=== PATIENT | male | born 1965 | race Caucasian/White ===

== ENCOUNTER 2025-03-27 21:57 | Inpatient (IN) | payer MEDICAID, OTHER ==
[~2025-03-27] VITALS: Ht 167.6 cm; Wt 101.4 kg
--- NOTE | 2025-03-27 22:23 | ED.PDOC ---
History of Present Illness HPI Comments 59 y/o obese M, with a history of hypertension and recent lower back surgery 2x weeks ago, presents with c/c of nonradiating, substernal chest pain and fever. Patient endorses on sudden, unprovoked, and atraumatic onset of symptoms, this afternoon, which has been, progressively, worsening since. No reported cardiac medical, surgical, or family history. Denial of any shortness of breath, nausea, vomiting, or further acute symptoms. Time Seen by MD: 22:15 Reviewed Notes: Nurses Notes Allergies: Coded Allergies: NO KNOWN ALLERGIES (Unverified , 03/27/25) Information Source: Patient Mode of Arrival: Ambulatory Severity: Moderate Timing: Hours Duration: Since onset Prehospital treatment: None Past Medical History PAST MEDICAL HISTORY: HTN Surgical History: Denies all surgeries Family History Family History: Unknown Social History Smoker: Non-Smoker Alcohol: Denies ETOH Use Drugs: Denies Drug Use Lives In: Home All Other Systems: Reviewed and Negative (Comprehensive systems review obtained and negative except for what is stated in the HPI.) Physical Exam General Appearance: Moderate Distress HEENT: Normal ENT Inspection, Pharynx Normal, TMs Normal Neck: Full Range of Motion, Non-Tender, Normal, Normal Inspection Respiratory: Chest Non-Tender, Lungs Clear, No Accessory Muscle Use, No Respiratory Distress, Normal Breath Sounds Cardiovascular: No Edema, No JVD, No Murmur, No Gallop, Normal Peripheral Pulses, Regular Rate/Rhythm Breast Exam: Deferred Gastrointestinal: No Organomegaly, Non Tender, No Pulsatile Mass, Normal Bowel Sounds, Soft Genitalia: Deferred Pelvic: Deferred Rectal: Deferred Extremities: No calf tenderness, Normal capillary refill, Normal inspection, Normal range of motion, Non-tender, No pedal edema Musculoskeletal : Apperance: Normal Neurologic: Alert, control systems drafting officer II-XII nml as Tested, No Motor Deficits, Normal Affect, Normal Mood, No Sensory Deficits Cerebellar Function: Normal Reflexes: Normal Skin: Dry, Normal Color, Warm Peripheral Pulses: 3+ Radial (R), 3+ Radial (L) Lymphatic: No Adenopathy Was a procedure done? Was a procedure done?: No EKG EKG : [place]: Normal Cardiac Rhythm: NSR Block: None Hypertrophy: None ST: New Differential Dx Considerations may include: [place], PE, ACS, URI, PNA, angina, anxiety, among others X-Ray, Labs, Meds, VS Vital Signs Date Time Temp Pulse Resp B/P (MAP) Pulse Ox O2 Delivery O2 Flow Rate FiO2 03/27/25 22:42 98.0 92 16 139/89 98 98.0 03/27/25 22:30 93 17 98 Nasal Cannula* 4 36 03/27/25 22:20 98.0 96 17 139/89 (106) 98 98.0 03/27/25 22:05 79 Lab Test 03/27/25 22:24 Range/Units White Blood Count 9.1 4.4-10.8 10^3/uL Red Blood Count 4.52 4.5-5.90 10^6/uL Hemoglobin 14.8 13.5-17.5 g/dL Hematocrit 42.3 41.0-53.0 % Mean Corpuscular Volume 93.6 80.0-100.0 fL Mean Corpuscular Hemoglobin 32.8 H 28.0-32.0 pg Mean Corpuscular Hemoglobin Concent 35.1 32.0-36.0 g/dL Red Cell Distribution Width 13.3 11.8-14.3 % Platelet Count 396 140-450 10^3/uL Mean Platelet Volume 7.8 6.9-10.8 fL Neutrophils (%) (Auto) 62.2 37.0-80.0 % Lymphocytes (%) (Auto) 21.3 10.0-50.0 % Monocytes (%) (Auto) 10.4 0.0-12.0 % Eosinophils (%) (Auto) 4.7 0.0-7.0 % Basophils (%) (Auto) 1.4 0.0-2.0 % Neutrophils # (Auto) 5.7 1.6-8.6 10 ^3/uL Lymphocytes # (Auto) 1.9 0.4-5.4 10 ^3/uL Monocytes # (Auto) 1.0 0-1.3 10 ^3/uL Eosinophils # (Auto) 0.4 0-0.8 10 ^3/uL Basophils # (Auto) 0.1 0-0.2 10 ^3/uL Nucleated Red Blood Cells 0.1 % Prothrombin Time 10.4 9.3-11.8 sec Prothrombin Time INR 0.98 0.9-1.15 Sodium Level 138 136-145 mmol/L Potassium Level 4.5 3.5-5.1 mmol/L Chloride Level 105 98-107 mmol/L Carbon Dioxide Level 23 20-31 mmol/L Anion Gap 10 5-15 Blood Urea Nitrogen 7 L 9-23 mg/dL Creatinine 0.88 0.700-1.30 mg/dL Glomerular Filtration Rate Calc 98 >90 mL/min BUN/Creatinine Ratio 8.0 L 10.0-20.0 Serum Glucose 115 H 74-106 mg/dL Calcium Level 8.2 L 8.7-10.4 mg/dL Troponin I High Sensitivity 634 *H </=54 ng/L Current Medications Medications (Trade) Dose Ordered Sig/Yadiel Route Start Time Stop Time Status Last Admin Heparin Sodium (Porcine) 5,000 units ONCE ONCE IV 03/27/25 22:30 03/27/25 22:31 DC 03/27/25 22:33 [place] [address] Ph: [phone] DIAGNOSTIC IMAGING Diagnostic Imaging Report : [id number] Signed PATIENT: JANE COHEN ACCT: [id number] UNIT: [id number] : 1965 LOC: ER ROOM / BED: / AGE / SEX: 59 / M ADM STATUS: REG ER SERVICE 12 ORDERING PHYSICIAN: JORGE ALEJANDRO MD PROCEDURE(s): CXR1 - CHEST XRAY 1 VIEW REASON: STEMI ORDER NUMBER(s): [id number], ACCESSION NUMBER(s): [id number] CHEST RADIOGRAPH Indication: STEMI Technique: Single frontal view of the chest was obtained COMPARISON: XR CHEST 2 VIEW on DOS: 03/07/25, CR CHEST 2 VIEW on DOS: 12/18/23, CR CHEST 2 VIEW on DOS: 08/18/23, XR CHEST 2 VIEWS on DOS: 02/03/23 FINDINGS: Lines and Tubes: None Lungs: Clear Pleura: No effusion. No pneumothorax. Cardiomediastinal contours: Unremarkable Bones: Unremarkable IMPRESSION: 1. No acute disease. ATED BY: SAUL GIANG MD DICTATED DATE/TIME: 03/27/252320 SIGNED BY: SAUL GIANG MD SIGNED DATE/TIME: 03/27/25 7187 CC: Patient alert. Vitals stable. Came in because of chest pain. Answering questions. EKG reviewed does show STEMI. Was given heparin. Spoke with Cardiology. Was given aspirin. medical laboratory manager activated. Explained to the patient. Continue monitoring. Time of 1ST Reevaluation: 22:45 Reevaluation 1ST: Unchanged Patient Education/Counseling: Diagnosis, Treatment, Other (need for cardiac intervention and hospital admission ) Family Education/Counseling: No Family Present SEPSIS Sepsis Screen Physician Orders Electrocardigram (03/27/25 22:33) Electrocardigram (03/27/25 23:33) Electrocardigram (03/28/25 01:33) Cl Left Heart Cath (03/27/25 22:41) Chest Xray 1 View (03/27/25 23:13) Midazolam Injection (Versed Injection) (03/27/25 23:41) Vital Signs Date Time Temp Pulse Resp B/P (MAP) Pulse Ox O2 Delivery O2 Flow Rate FiO2 03/27/25 22:42 98.0 92 16 139/89 98 98.0 03/27/25 22:30 93 17 98 Nasal Cannula* 4 36 03/27/25 22:20 98.0 96 17 139/89 (106) 98 98.0 03/27/25 22:05 79 Laboratory Tests Test 03/27/25 22:24 White Blood Count 9.1 10^3/uL (4.4-10.8) Medications Medications Dose Ordered Sig/Yadiel Route Start Time Stop Time Status Last Admin Dose Admin Heparin Sodium (Porcine) 5,000 units ONCE ONCE IV 03/27/25 22:30 03/27/25 22:31 DC 03/27/25 22:33 Departure 1 Departure Time of Disposition: 22:38 Impression: Primary Impression: STEMI (ST elevation myocardial infarction) Qualified Codes: I21.3 - ST elevation (STEMI) myocardial infarction of unspecified site Disposition: ADMITTED INPATIENT Admit to: Med Surg Condition: Guarded Critical Care Note Critical Care Time?: Yes (90 min-critical care time only) Stability Stability form required: No Heart Score Heart Score: Heart Score Response (Comments) Value History Highly Suspicious 2 EKG Normal 0 Age 45-64 1 Risk Factors >3 or Hx ASHD 2 Troponin N/A 0 Total 5 I personally scribed for JORGE ALEJANDRO MD ([email or web address]) on 03/27/25 at 22:23. Electronically submitted by Anshu Luis ([email or web address]). I personally scribed for JORGE ALEJANDRO MD ([email or web address]) on 03/28/25 at 02:46. Electronically submitted by Anshu Luis [email or web address]). JORGE LAEJANDRO MD Mar 27, 2025 22:23
[2025-03-27 22:30] VITALS: PULSE 93; RESP 17; O2SAT 98
[2025-03-27] MEDS: HEPARIN SODIUM (PORCINE) 5000 UNITS/ML 1ML VIAL IV ONE (22:33)
[2025-03-27 22:37] LABS: Hematocrit 42.3 % (41.0-53.0); Hemoglobin 14.8 g/dL (13.5-17.5); Mean Corpuscular Hemoglobin 32.8 pg (28.0-32.0); Mean Corpuscular Volume 93.6 fL (80.0-100.0); Nucleated Red Blood Cells % 0.1 %
[2025-03-27] MEDS: ANGIOMAX 250 MG VIAL IV ONE (22:42)
[2025-03-27] MEDS: fentaNYL CITRATE 100 MCG/2 ML VL ONE ×2 (22:42→23:41)
[2025-03-27] MEDS: MIDAZOLAM HCL 2MG/2ML 2ml VIAL (1mg/ml) ONE ×2 (22:42→23:41)
[2025-03-27] MEDS: SODIUM CHL 0.9% 50 ML ONE (22:43)
[2025-03-27] MEDS: IODIXANOL 320MG/ML 100ML BTL IV ONE ×2 (22:43→23:38)
[2025-03-27 22:46] LABS: Chloride 105 mmol/L (98-107); Potassium 4.5 mmol/L (3.5-5.1); Sodium 138 mmol/L (136-145)
[2025-03-27 22:47] LABS: Anion Gap 10 (5-15); Carbon Dioxide 23 mmol/L (20-31)
[2025-03-27 22:48] LABS: Calcium 8.2 mg/dL (8.7-10.4)
[2025-03-27 22:52] LABS: BUN/Creatinine Ratio 8.0 (10.0-20.0)
[2025-03-27 22:54] LABS: Blood Urea Nitrogen 7 mg/dL (9-23); Glucose 115 mg/dL (74-106); INR 0.98 (0.9-1.15); Prothrombin Time 10.4 sec (9.3-11.8)
[2025-03-27] MEDS: LIDOCAINE 2%HCL (LOCAL ANESTH.) INJ 20ML MDV ONE (22:57)
--- NOTE | 2025-03-27 23:24 | DVH ---
CHEST RADIOGRAPH Indication: STEMI Technique: Single frontal view of the chest was obtained COMPARISON: XR CHEST 2 VIEW on DOS: 03/07/25, CR CHEST 2 VIEW on DOS: 12/18/23, CR CHEST 2 VIEW on DOS: 08/18/23, XR CHEST 2 VIEWS on DOS: 02/03/23 FINDINGS: Lines and Tubes: None Lungs: Clear Pleura: No effusion. No pneumothorax. Cardiomediastinal contours: Unremarkable Bones: Unremarkable IMPRESSION: 1. No acute disease.
[2025-03-27] MEDS: EPTIFIBATIDE INJ (2MG/ML) 10ML VIAL IV ONE (23:35)
--- NOTE | 2025-03-27 23:38 | DVHHPRES ---
History of Present Illness Resident Creating Document: BONY CISNEROS RESIDENT History of Present Illness This is a 59-year-old with past medical history of Previous hospitalization: PMHx: PSHx: Family history: Social history: Home medication: Allergic history: Review of Systems Review of Systems ROS: Constitutional: Denies weight loss, fever and chills. HEENT: Denies changes in vision and hearing. Respiratory: Denies shortness of breath and cough Cardiovascular: Denies chest discomfort or palpitations GI: Denies abdominal pain, nausea, vomiting and diarrhea. : Denies dysuria and urinary frequency. Musculoskeletal: Denies myalgias and joint pain Skin: Denies rash and pruritus. Neurological: Denies dizziness, headache, vision or hearing problems Allergies: Coded Allergies: NO KNOWN ALLERGIES (Unverified , 03/27/25) Exam Vital Signs Vital Signs Date Time Temp Pulse Resp B/P (MAP) Pulse Ox O2 Delivery O2 Flow Rate FiO2 03/27/25 22:42 98.0 92 16 139/89 98 98.0 03/27/25 22:30 Nasal Cannula* 4 36 Exam General: Patient alert and oriented in person, place and time. Patient following commands. HEENT: Normocephalic, atraumatic, moist mucous membranes Respiratory/pulmonary: Clear lungs bilaterally, vesicular murmurs present in almost all lung rouse, no associated crackles or wheezes. Cardiovascular: Normal heart sounds S1 and S2 with no associated murmurs Abdomen: Abdomen nondistended, there is no pain to palpation in any of the abdominal quadrants, no palpable masses. Extremities: There is no peripheral edema present at the lower extremities. Peripheral Pulses: 3+ Radial (R). 3+ Radial (L). 3+ Dorsalis pedis (R). 3+ Dorsalis pedis(L) Skin: No rashes or pruritus, there is no sacral edema present at this time. Neurological: Intact cranial nerves with no focal neurologic deficits Labs/Xrays Labs Test 03/27/25 22:24 Range/Units White Blood Count 9.1 4.4-10.8 10^3/uL Red Blood Count 4.52 4.5-5.90 10^6/uL Hemoglobin 14.8 13.5-17.5 g/dL Hematocrit 42.3 41.0-53.0 % Mean Corpuscular Volume 93.6 80.0-100.0 fL Mean Corpuscular Hemoglobin 32.8 H 28.0-32.0 pg Mean Corpuscular Hemoglobin Concent 35.1 32.0-36.0 g/dL Red Cell Distribution Width 13.3 11.8-14.3 % Platelet Count 396 140-450 10^3/uL Mean Platelet Volume 7.8 6.9-10.8 fL Neutrophils (%) (Auto) 62.2 37.0-80.0 % Lymphocytes (%) (Auto) 21.3 10.0-50.0 % Monocytes (%) (Auto) 10.4 0.0-12.0 % Eosinophils (%) (Auto) 4.7 0.0-7.0 % Basophils (%) (Auto) 1.4 0.0-2.0 % Neutrophils # (Auto) 5.7 1.6-8.6 10 ^3/uL Lymphocytes # (Auto) 1.9 0.4-5.4 10 ^3/uL Monocytes # (Auto) 1.0 0-1.3 10 ^3/uL Eosinophils # (Auto) 0.4 0-0.8 10 ^3/uL Basophils # (Auto) 0.1 0-0.2 10 ^3/uL Nucleated Red Blood Cells 0.1 % Prothrombin Time 10.4 9.3-11.8 sec Prothrombin Time INR 0.98 0.9-1.15 Sodium Level 138 136-145 mmol/L Potassium Level 4.5 3.5-5.1 mmol/L Chloride Level 105 98-107 mmol/L Carbon Dioxide Level 23 20-31 mmol/L Anion Gap 10 5-15 Blood Urea Nitrogen 7 L 9-23 mg/dL Creatinine 0.88 0.700-1.30 mg/dL Glomerular Filtration Rate Calc 98 >90 mL/min BUN/Creatinine Ratio 8.0 L 10.0-20.0 Serum Glucose 115 H 74-106 mg/dL Calcium Level 8.2 L 8.7-10.4 mg/dL Troponin I High Sensitivity 634 *H </=54 ng/L SEPSIS Sepsis Screen Date sepsis recognized/suspect: Mar 27, 2025 Time Sepsis recognized/suspect: 2204 Recent Procedure: No On Antibiotic Therapy: No Respiratory Rate >20: No Heart Rate >90: No Temp<36 C (96.8 F) or >38.3 C: No SBP <90 or MAP <65 mmHG: No New Acute Mental Status Change: No Is the patient on CPAP, BIPAP,: No Physician Orders Troponin-I Hs (03/27/25 23:05) Troponin-I Hs (03/28/25 01:05) Electrocardigram (03/27/25 22:33) Electrocardigram (03/27/25 23:33) Electrocardigram (03/28/25 01:33) Cl Left Heart Cath (03/27/25 22:41) Chest Xray 1 View (03/27/25 23:13) Vital Signs Date Time Temp Pulse Resp B/P (MAP) Pulse Ox O2 Delivery O2 Flow Rate FiO2 03/27/25 22:42 98.0 92 16 139/89 98 98.0 03/27/25 22:30 93 17 98 Nasal Cannula* 4 36 03/27/25 22:20 98.0 96 17 139/89 (106) 98 98.0 03/27/25 22:05 79 Laboratory Tests Test 03/27/25 22:24 White Blood Count 9.1 10^3/uL (4.4-10.8) Medications Medications Dose Ordered Sig/Yadiel Route Start Time Stop Time Status Last Admin Dose Admin Heparin Sodium (Porcine) 5,000 units ONCE ONCE IV 03/27/25 22:30 03/27/25 22:31 DC 03/27/25 22:33 5,000 UNITS Date of Service: Mar 27, 2025 Billing Provider: RAINA FOREMAN MD Common Visit Codes: [id number] INP/OBS CARE (HIGH) Secondary Visit Codes: [id number] CARE PLAN 30 MINUTES BONY CISNEROS RESIDENT Mar 27, 2025 23:38 DIVYA SANTANA DNP Mar 27, 2025 23:51
--- NOTE | 2025-03-27 23:52 | DVHHP2 ---
History of Present Illness Reason for Visit: ST-elevation myocardial infarction History of Present Illness The patient is a 59-year-old male with past medical history of hypertension who presented to [facility] ED with complaint of chest pain. Patient reports he has been experiencing substernal chest pain, rating 8/10 numeric scale, nonradiating, associated with subjective fever, getting worse that prompted this visit. Patient states he had lower back surgery 2 weeks ago. Patient was seen and evaluated in the ED, chest x-ray showed NAD, troponin 364, EKG is consistent with STEMI and code STEMI was called. Laboratory data shows WBC 9.1, platelets 396, sodium 138, potassium 4.5, BUN 7, creatinine 0.88, glucose 115, calcium 8.2, blood pressure 145/78, heart rate 65, temperature 98.2 F, O2 saturation 98% on oxygen. Chest x-ray show no acute disease. Patient was emergently taken to the laboratory worker and admitted to step-down unit. Please see medication orders section in the computer. On my assessment, patient denied chest pain at this moment, no headache, no diaphoresis, shortness a breath, no diarrhea, nausea, vomiting, no fever, no chills. Patient was admitted for further evaluation and medical management. Past Medical History HTN Past Surgical History Lower back surgery Family History Reviewed, noncontributory to the management of this case. Past Social History The patient lives at home, denies smoking, alcohol or illicit drugs abuse. Review of Systems Constitutional: Yes: Weakness; No: Fever, Chills, Sweats, Malaise, Other Eyes: No: Pain, Vision change, Conjunctivae inflammation, Eyelid inflammation, Other, Redness ENT: No: Ear pain, Ear discharge, Nose pain, Nose discharge, Nose congestion, Mouth pain, Mouth swelling, Throat pain, Throat swelling, Other Respiratory: No: Cough, Dry, Shortness of breath, SOB with excertion, Wheezing, Hemoptysis, Pleuritic Pain, Sputum, Wheezing, Other Cardiovascular: Chest Pain; No: Palpitations, Orthopnea, Paroxysmal Noc. Dyspnea, Edema, Lt Headedness, Other Gastrointestinal: No: Nausea, Vomiting, Abdominal Pain, Diarrhea, Constipation, Melena, Hematochezia, Other Genitourinary: No Dysuria, No Frequency, No Incontinence, No Hematuria, No Retention, No Other Musculoskeletal: No: other, neck pain, shoulder pain, arm pain, back pain, hand pain, leg pain, foot pain Skin: No: Rash, Lesions, Jaundice, Bruising, Other Neurological: No: Weakness, Numbness, Incoordination, Change in speech, Confusion, Seizures, Other Allergies: Coded Allergies: NO KNOWN ALLERGIES (Unverified , 03/27/25) Exam Vital Signs Vital Signs Date Time Temp Pulse Resp B/P (MAP) Pulse Ox O2 Delivery O2 Flow Rate FiO2 03/27/25 22:42 98.0 92 16 139/89 98 98.0 03/27/25 22:30 Nasal Cannula* 4 36 General Appearance: Alert, Oriented X3, Cooperative, No acute distress HEENT: Atraumatic, PERRLA, EOMI, Mucous membr. moist/pink Respiratory: Clear to auscultation, Normal air movement Cardiovascular: Regular rate, Normal S1, Normal S2, No murmurs Abdominal: Normal bowel sounds, Soft, No tenderness, No hepatospenomegaly, No masses Extremities: No clubbing, No cyanosis, No edema, Normal pulses, No tenderness/swelling Skin: No rashes, No breakdown, No significant lesion Neuro: Normal speech, Normal tone, Sensation intact, Cranial nerves 3-12 NL, Reflexes 2+, Other (Generalized weakness) Psych/Mental Status: Mental status NL, Mood NL Labs/Xrays Labs Test 03/27/25 22:24 Range/Units White Blood Count 9.1 4.4-10.8 10^3/uL Red Blood Count 4.52 4.5-5.90 10^6/uL Hemoglobin 14.8 13.5-17.5 g/dL Hematocrit 42.3 41.0-53.0 % Mean Corpuscular Volume 93.6 80.0-100.0 fL Mean Corpuscular Hemoglobin 32.8 H 28.0-32.0 pg Mean Corpuscular Hemoglobin Concent 35.1 32.0-36.0 g/dL Red Cell Distribution Width 13.3 11.8-14.3 % Platelet Count 396 140-450 10^3/uL Mean Platelet Volume 7.8 6.9-10.8 fL Neutrophils (%) (Auto) 62.2 37.0-80.0 % Lymphocytes (%) (Auto) 21.3 10.0-50.0 % Monocytes (%) (Auto) 10.4 0.0-12.0 % Eosinophils (%) (Auto) 4.7 0.0-7.0 % Basophils (%) (Auto) 1.4 0.0-2.0 % Neutrophils # (Auto) 5.7 1.6-8.6 10 ^3/uL Lymphocytes # (Auto) 1.9 0.4-5.4 10 ^3/uL Monocytes # (Auto) 1.0 0-1.3 10 ^3/uL Eosinophils # (Auto) 0.4 0-0.8 10 ^3/uL Basophils # (Auto) 0.1 0-0.2 10 ^3/uL Nucleated Red Blood Cells 0.1 % Prothrombin Time 10.4 9.3-11.8 sec Prothrombin Time INR 0.98 0.9-1.15 Sodium Level 138 136-145 mmol/L Potassium Level 4.5 3.5-5.1 mmol/L Chloride Level 105 98-107 mmol/L Carbon Dioxide Level 23 20-31 mmol/L Anion Gap 10 5-15 Blood Urea Nitrogen 7 L 9-23 mg/dL Creatinine 0.88 0.700-1.30 mg/dL Glomerular Filtration Rate Calc 98 >90 mL/min BUN/Creatinine Ratio 8.0 L 10.0-20.0 Serum Glucose 115 H 74-106 mg/dL Calcium Level 8.2 L 8.7-10.4 mg/dL Troponin I High Sensitivity 634 *H </=54 ng/L PATIENT: JANE COHEN ACCT: [id number] UNIT: [id number] : 1965 LOC: ER ROOM / BED: / AGE / SEX: 59 / M ADM STATUS: REG ER SERVICE 0243 ORDERING PHYSICIAN: JORGE ALEJANDRO MD PROCEDURE(s): CXR1 - CHEST XRAY 1 VIEW REASON: STEMI ORDER NUMBER(s): [id number], ACCESSION NUMBER(s): [id number] CHEST RADIOGRAPH Indication: STEMI Technique: Single frontal view of the chest was obtained COMPARISON: XR CHEST 2 VIEW on DOS: 03/07/25, CR CHEST 2 VIEW on DOS: 12/18/23, CR CHEST 2 VIEW on DOS: 08/18/23, XR CHEST 2 VIEWS on DOS: 02/03/23 FINDINGS: Lines and Tubes: None Lungs: Clear Pleura: No effusion. No pneumothorax. Cardiomediastinal contours: Unremarkable Bones: Unremarkable IMPRESSION: 1. No acute disease. SEPSIS Sepsis Screen Date sepsis recognized/suspect: Mar 27, 2025 Time Sepsis recognized/suspect: 2204 Recent Procedure: No On Antibiotic Therapy: No Respiratory Rate >20: No Heart Rate >90: No Temp<36 C (96.8 F) or >38.3 C: No SBP <90 or MAP <65 mmHG: No New Acute Mental Status Change: No Is the patient on CPAP, BIPAP,: No Physician Orders Troponin-I Hs (03/27/25 23:05) Troponin-I Hs (03/28/25 01:05) Electrocardigram (03/27/25:33) Electrocardigram (03/27/25:33) Electrocardigram (03/28/25:33) Cl Left Heart Cath (03/27/25 22:41) Chest Xray 1 View (03/27/25 23:13) Midazolam Injection (Versed Injection) (03/27/25 23:41) * Cardiology Consult (03/27/25 23:47) Admit (03/27/25 23:47) Allergies (03/27/25 23:47) Code Status (03/27/25 23:47) 0.9% Ns 1000 Ml (03/28/25 00:00) Oxygen Per Hour (03/27/25 23:47) Hydrocodone-Acet 5/325mg Tab ([place] 32 (03/28/25 00:00) Ondansetron Hcl (Zofran) (03/28/25 00:00) Docusate Sodium Capsule (Colace Capsule) (03/28/25 00:00) Fall Risk Precautions In Place QSHIFT (03/27/25 23:47) Complete Blood Count (03/28/25 04:00) Comprehensive Metabolic Panel (03/28/25 04:00) Cardiac Diet-2gna,Lofat,Lochol (03/28/25 Breakfast) Condition: Critical (03/27/25 23:47) Acetaminophen Tablet (Tylenol Tablet) (03/28/25 00:00) Maintain Bed Rest (03/27/25 23:47) Sequential Compression Device (03/27/25 ) Nitroglycerin Sublingual (Ntrostat Subli (03/28/25 00:00) Morphine Sulfate Injection (03/28/25 00:00) Stat Ekg For Chest Pain (03/27/25 23:47) Notify Of Changes From Base (03/27/25 23:47) Precision Dancer For 24 Hours (03/27/25 23:47) Emergency Dysrhythmia Protocol (03/27/25 23:47) Rhythm Strips Once Every Shift (03/27/25 23:47) Oxygen By Nasal Cannula (03/27/25 23:47) Vital Signs Date Time Temp Pulse Resp B/P (MAP) Pulse Ox O2 Delivery O2 Flow Rate FiO2 03/27/25 22:42 98.0 92 16 139/89 98 98.0 03/27/25 22:30 93 17 98 Nasal Cannula* 4 36 03/27/25 22:20 98.0 96 17 139/89 (106) 98 98.0 03/27/25 22:05 79 Laboratory Tests Test 03/27/25 22:24 White Blood Count 9.1 10^3/uL (4.4-10.8) Medications Medications Dose Ordered Sig/Yadiel Route Start Time Stop Time Status Last Admin Dose Admin Heparin Sodium (Porcine) 5,000 units ONCE ONCE IV 03/27/25 22:30 03/27/25 22:31 DC 03/27/25 22:33 5,000 UNITS Assessment/Plan Assessment/Plan STEMI (ST elevation myocardial infarction) Generalized weakness ST elevation (STEMI) myocardial infarction of unspecified site Plan 1. Admit to step-down unit 2. Breathing treatment 3. Pain control management 4. Management of fluids and electrolytes 5. Consultation for Cardiology 6. Diagnostic tests chest x-ray 7. DVT prophylaxis-on aspirin 8. Repeat labs CBC, CMP in a.m. 9. Continue with current medical management 10. Treatment plan discussed with patient and RN. Patient verbalized understanding. Plan discussed with: Patient, Other (RN) My Orders Orders - DIVYA SANTANA DNP Procedure Category Date Status Time * Cardiology Consult CONS 03/27/25 Transmitted 23:47 Admit ADMIT 03/27/25 Transmitted 23:47 Allergies OMAIRA 03/27/25 In Process 23:47 Code Status CODE 03/27/25 Transmitted 23:47 0.9% Ns 1000 Ml PHA 03/28/25 Transmitted 00:00 Oxygen Per Hour RT 03/27/25 Transmitted 23:47 Hydrocodone-Acet PHA 03/28/25 Transmitted 5/325mg Tab ([place] 00:00 Ondansetron Hcl PHA 03/28/25 Transmitted (Zofran) 00:00 Docusate Sodium PHA 03/28/25 Transmitted Capsule (Colace 00:00 Fall Risk Precautions OMAIRA 03/27/[address] 23:47 Complete Blood Count LAB 03/28/25 Verified 04:00 Comprehensive LAB 03/28/25 Verified Metabolic Panel 04:00 Cardiac DIET 03/28/25 Transmitted Diet-2gna,Lofat,Lochol Breakfast Condition: Critical OMAIRA 03/27/25 In Process 23:47 Acetaminophen Tablet PHA 03/28/25 Transmitted (Tylenol Tablet) 00:00 Maintain Bed Rest OMAIRA 03/27/25 In Process 23:47 Sequential OMAIRA 03/27/25 In Process Compression Device Nitroglycerin PHA 03/28/25 Transmitted Sublingual (Ntrostat 00:00 Morphine Sulfate PHA 03/28/25 Transmitted Injection 00:00 Stat Ekg For Chest OMAIRA 03/27/25 In Process Pain 23:47 Notify Md Of Changes OMAIRA 03/27/25 Transmitted From Base 23:47 Precision Dancer For OMAIRA 03/27/25 Transmitted 24 Hours 23:47 Emergency Dysrhythmia OMAIRA 03/27/25 Transmitted Protocol 23:47 Rhythm Strips Once OMAIRA 03/27/25 Transmitted Every Shift 23:47 Oxygen By Nasal RT 03/27/25 Transmitted Cannula 23:47 Problem List: (1) STEMI (ST elevation myocardial infarction) (2) Generalized weakness (3) ST elevation (STEMI) myocardial infarction of unspecified site Date of Service: Mar 27, 2025 Billing Provider: DIVYA SANTANA DNP Common Visit Codes: [id number] INP/OBS CARE (HIGH) DIVYA SANTANA DNP Mar 27, 2025 23:52
[2025-03-27] MEDS: TICAGRELOR 90 MG TAB ONE (23:53)
[2025-03-28] VITALS (23 sets, daily range): BP systolic 115–145; BP diastolic 73–85; PULSE 65–107; RESP 10–25; TEMP 97.4–98.9; O2SAT 95–100
[2025-03-28] MEDS ORDERED: ACETAMINOPHEN 325 MG TAB PO PRN
[2025-03-28] MEDS ORDERED: SODIUM CHLORIDE 0.9% 1,000 ML IV SCH
[2025-03-28] MEDS ORDERED: ONDANSETRON HCL 4 MG/2 ML VIAL IV PRN
[2025-03-28] MEDS ORDERED: MORPHINE SULFATE INJ 2 MG/ml SYRG IV PRN
[2025-03-28] MEDS: IODIXANOL 320MG/ML 100ML BTL IV ONE (00:03)
[2025-03-28] MEDS: ANGIOMAX 250 MG VIAL IV ONE (00:05)
[2025-03-28] MEDS: SODIUM CHL 0.9% 50 ML ONE (00:06)
--- NOTE | 2025-03-28 00:26 | DVHINCON2 ---
Date of service: Mar 27, 2025 Referring Physician Lady Reason for Consultation STEMI History of Present Illness This is a 59 year old male with a past medical history of hypertension and recent lower back surgery 2 weeks ago who presented to the ED with complaints of nonradiating, substernal chest pain and fever. Patient reported sudden onset, unprovoked, and atraumatic onset of symptoms this afternoon, which has been p rogressively worsening since. Chest x-ray showed NAD. Troponin 634. EKG is consistent with STEMI. Code STEMI was called, and I evaluated the patient at bedside within a few minutes. Patient will be emergently taken to the senior label specialist and admitted to ICU. Allergies: Coded Allergies: NO KNOWN ALLERGIES (Unverified , 03/27/25) Review of Systems All Other Systems: Reviewed and Negative (Comprehensive systems review obtained and negative except for what is stated in the HPI.) Vital Signs Vital Signs Date Time Temp Pulse Resp B/P (MAP) Pulse Ox O2 Delivery O2 Flow Rate FiO2 03/27/25 22:42 98.0 92 16 139/89 98 98.0 03/27/25 22:30 Nasal Cannula* 4 36 Physical Exam GENERAL: Alert and oriented x 3. No acute distress. EYES: PERRL, EOMI. Anicteric. HENT: Moist mucous membranes. LUNGS: Clear to auscultation bilaterally. CARDIOVASCULAR: Regular rate and rhythm. ABDOMEN: Soft, nontender and nondistended. EXTREMITIES: No edema. NEUROLOGIC: No focal neurological deficits. SKIN: Warm, dry. Labs/Diagnostic Data Labs Test 03/27/25 22:24 Range/Units White Blood Count 9.1 4.4-10.8 10^3/uL Red Blood Count 4.52 4.5-5.90 10^6/uL Hemoglobin 14.8 13.5-17.5 g/dL Hematocrit 42.3 41.0-53.0 % Mean Corpuscular Volume 93.6 80.0-100.0 fL Mean Corpuscular Hemoglobin 32.8 H 28.0-32.0 pg Mean Corpuscular Hemoglobin Concent 35.1 32.0-36.0 g/dL Red Cell Distribution Width 13.3 11.8-14.3 % Platelet Count 396 140-450 10^3/uL Mean Platelet Volume 7.8 6.9-10.8 fL Neutrophils (%) (Auto) 62.2 37.0-80.0 % Lymphocytes (%) (Auto) 21.3 10.0-50.0 % Monocytes (%) (Auto) 10.4 0.0-12.0 % Eosinophils (%) (Auto) 4.7 0.0-7.0 % Basophils (%) (Auto) 1.4 0.0-2.0 % Neutrophils # (Auto) 5.7 1.6-8.6 10 ^3/uL Lymphocytes # (Auto) 1.9 0.4-5.4 10 ^3/uL Monocytes # (Auto) 1.0 0-1.3 10 ^3/uL Eosinophils # (Auto) 0.4 0-0.8 10 ^3/uL Basophils # (Auto) 0.1 0-0.2 10 ^3/uL Nucleated Red Blood Cells 0.1 % Prothrombin Time 10.4 9.3-11.8 sec Prothrombin Time INR 0.98 0.9-1.15 Sodium Level 138 136-145 mmol/L Potassium Level 4.5 3.5-5.1 mmol/L Chloride Level 105 98-107 mmol/L Carbon Dioxide Level 23 20-31 mmol/L Anion Gap 10 5-15 Blood Urea Nitrogen 7 L 9-23 mg/dL Creatinine 0.88 0.700-1.30 mg/dL Glomerular Filtration Rate Calc 98 >90 mL/min BUN/Creatinine Ratio 8.0 L 10.0-20.0 Serum Glucose 115 H 74-106 mg/dL Calcium Level 8.2 L 8.7-10.4 mg/dL Troponin I High Sensitivity 634 *H </=54 ng/L Assessment STEMI. HTN Plan/Recommendation I agree with your ongoing assessment and care of plan. Emergency cardiac cath. Risks and benefits discussed with the patient. Morphine and [place] for pain management. Heparin drip per pharmacy. Nitro SL. Additional plan as per the hospital course. Critical care time of 90 minutes provided to include time spent evaluation of patient at bedside, when appropriate patient/family education for diagnosis, treatment plan, review of pertinent medical information and discussion of care with specialty providers and PCP. Plan discussed with: Patient COLES,HARINDER Baldwin MD Mar 27, 2025 23:51
[2025-03-28] MEDS ORDERED: NITROGLYCERIN 0.4 MG SL TAB SL PRN ×2 (00:45)
--- NOTE | 2025-03-28 04:23 | DVH ---
CHEST RADIOGRAPH Indication: STEMI Technique: 1 view Comparison: XY CHEST XRAY 1 VIEW on DOS: 03/27/25 FINDINGS: Lines and Tubes: External leads and defibrillator pad. Lungs/Pleura: No focal consolidation, pleural effusion or pneumothorax. Cardiomediastinum: Unremarkable. Other: No acute osseous abnormality. IMPRESSION: 1. No acute cardiopulmonary abnormality or significant change from the previous day.
--- NOTE | 2025-03-28 04:46 | ECG ---
[facility] Test Date: 2025-03-27 Test Time: 22:05:11 Pat Name: JANE COHEN Department: Room: [facility]24[facility] Gender: M Financial Planning Assistant: MILTON : 1965 Requested By: JORGE ALEJANDRO Order Number: [id number] Reading MD: Measurements Intervals [place] Rate: 79 P: 48 TX: 151 QRS: 57 QRSD: 92 T: 65 QT: 360 QTc: 413 Interpretive Statements Sinus rhythm Inferior infarct, acute (LCx) Lateral leads are also involved Please click the below link to view image of tracing.
[2025-03-28 07:51] LABS: Hematocrit 41.5 % (41.0-53.0); Hemoglobin 14.2 g/dL (13.5-17.5); Mean Corpuscular Hemoglobin 32.5 pg (28.0-32.0); Mean Corpuscular Volume 95.0 fL (80.0-100.0); Nucleated Red Blood Cells % 0.1 %
[2025-03-28 08:11] LABS: Alanine Aminotransferase 30 U/L (7-40); Albumin 3.3 g/dL (3.2-4.8); Anion Gap 13 (5-15); Bilirubin, Total 0.5 mg/dL (0.2-1.0); Carbon Dioxide 21 mmol/L (20-31); Chloride 105 mmol/L (98-107); Glucose 105 mg/dL (74-106); Magnesium 2.3 mg/dL (1.6-2.6); Potassium 3.9 mmol/L (3.5-5.1); Sodium 139 mmol/L (136-145); Total Protein 5.9 g/dL (5.7-8.2)
[2025-03-28 08:12] LABS: Alkaline Phosphatase 152 U/L (46-116); BUN/Creatinine Ratio 6.3 (10.0-20.0); Blood Urea Nitrogen < 5 mg/dL (9-23); Calcium 7.8 mg/dL (8.7-10.4)
[2025-03-28] MEDS: TICAGRELOR 90 MG TAB PO SCH (09:21)
[2025-03-28] MEDS: METOPROLOL TARTRATE 25 MG TAB PO SCH (09:21)
[2025-03-28] MEDS: LOSARTAN POTASSIUM 25 MG TAB PO SCH (09:21)
[2025-03-28] MEDS: ASPirin-EC 81 mg tab PO SCH (09:22)
[2025-03-28] MEDS: HYDROcodone-ACET 5/325MG TAB PO PRN (09:53)
[2025-03-28] MEDS ORDERED: TRAM50TA2 PO (09:56)
[2025-03-28] MEDS ORDERED: CHOL20007 PO (09:59)
[2025-03-28] MEDS ORDERED: CYCL-839 PO (09:59)
[2025-03-28] MEDS ORDERED: METO-289 PO (09:59)
[2025-03-28] MEDS ORDERED: DOCU-94 PO (09:59)
[2025-03-28] MEDS ORDERED: LOSA-534 PO (09:59)
[2025-03-28] MEDS ORDERED: DULO1CAP4 PO (09:59)
[2025-03-28] MEDS ORDERED: GABA300T4 PO (09:59)
[2025-03-28] MEDS ORDERED: AUG875T PO ×2 (10:45→11:54)
[2025-03-28] MEDS ORDERED: TICA90TA PO (12:12)
[2025-03-28] MEDS ORDERED: ASPI1TAB20 PO (12:12)
--- NOTE | 2025-03-28 12:18 | DVHPN2 ---
Subjective Patient denies any symptoms Reviewed: Care Plan, H&P, Labs, Medications Changes from previous H/P or p: No Changes General: Per HPI Eyes: No Pain, No Vision change, No Conjunctivae inflammation, No Eyelid inflammation, No Other, No Redness ENT: No Ear pain, No Ear discharge, No Nose pain, No Nose discharge, No Nose congestion, No Mouth pain, No Mouth swelling, No Throat pain, No Throat swelling, No Other Cardiovascular: Chest Pain; No Palpitations, No Orthopnea, No Paroxysmal Noc. Dyspnea, No Edema, No Lt Headedness, No Other Respiratory: No Cough, No Dry, No Shortness of breath, No SOB with excertion, No Wheezing, No Hemoptysis, No Pleuritic Pain, No Sputum, No Other Gastrointestinal: No Nausea, No Vomiting, No Abdominal Pain, No Diarrhea, No Constipation, No Melena, No Hematochezia, No Other Genitourinary: No Dysuria, No Frequency, No Incontinence, No Hematuria, No Retention, No Other Musculoskeletal: No other, No neck pain, No shoulder pain, No arm pain, No back pain, No hand pain, No leg pain, No foot pain Skin: No Rash, No Lesions, No Jaundice, No Bruising, No Other Objective Vitals Vital Signs Date Time Temp Pulse Resp B/P (MAP) Pulse Ox O2 Delivery O2 Flow Rate FiO2 03/28/25 10:30 71 131/74 03/28/25 10:00 16 95 03/28/25 09:00 97.8 97.8 03/28/25 08:00 Nasal Cannula* 2 28 Intake/Output Intake and Output 03/28/25 07:00 Intake Total 60 ml Output Total 650 ml Balance -590 ml Intake Oral 0 ml IV Total 60 ml Output Urine Total 650 ml General Appearance: Alert, Oriented X3, Cooperative, No acute distress HEENT: Atraumatic, PERRLA Lungs: Clear to auscultation, Normal air movement Cardiovascular: Normal S1, Normal S2 Abdomen: Normal bowel sounds, Soft, No tenderness Musculoskeletal: Normal sensory function, Normal motor function Skin: Dry, Intact Psych/Mental Status: Mental status NL Medications Current Medications Medications Dose Ordered Sig/Yadiel Route Start Time Stop Time Status Last Admin Dose Admin Acetaminophen/ Hydrocodone Bitart 1 tab Q4HP PRN PO 03/28/25 00:00 03/28/25 09:53 1 TAB Ondansetron HCl 4 mg Q4HP PRN IV 03/28/25 00:00 Docusate Sodium 100 mg BIDPRN PRN PO 03/28/25 00:00 Acetaminophen 650 mg Q6HP PRN PO 03/28/25 00:00 Nitroglycerin 0.4 mg Q5MINP PRN SL 03/28/25 00:00 Morphine Sulfate 2 mg Q30M PRN IV 03/28/25 00:00 Sodium Chloride 10 ml Q8HR IV 03/28/25 06:00 Nitroglycerin 0.4 mg Q5M PRN SL 03/28/25 00:45 Ticagrelor 90 mg BID PO 03/28/25 10:00 03/28/25 09:21 90 MG Aspirin 81 mg DAILY PO 03/28/25 10:00 03/28/25 09:22 81 MG Metoprolol Tartrate 25 mg BID PO 03/28/25 10:00 03/28/25 09:21 25 MG Atorvastatin Calcium 80 mg HS PO 03/28/25 22:00 Losartan Potassium 25 mg DAILY PO 03/28/25 10:00 03/28/25 09:21 25 MG Laboratory Results Laboratory Tests 03/28/25 06:07 Chemistry Test 03/27/25 22:24 03/28/25 06:07 Calcium Level 8.2 mg/dL (8.7-10.4) L 7.8 mg/dL (8.7-10.4) L Albumin 3.3 g/dL (3.2-4.8) Magnesium Level 2.3 mg/dL (1.6-2.6) Total Protein 5.9 g/dL (5.7-8.2) Coagulation Test 03/27/25 22:24 Prothrombin Time 10.4 sec (9.3-11.8) Prothrombin Time INR 0.98 (0.9-1.15) LFT Test 03/28/25 06:07 Alanine Aminotransferase (ALT) 30 U/L (7-40) Alkaline Phosphatase 152 U/L (46-116) H Aspartate Amino Transferase (AST) 208 U/L (13-40) H Total Bilirubin 0.5 mg/dL (0.2-1.0) Labs and/or images reviewed: Labs reviewed by me, Image(s) reviewed by me Assessment/Plan Assessment/Plan Impression: -STEMI -Status post PTCA and stent placement to circumflex obtuse marginal -primary hypertension -recent lumbar spinal surgery to L2-L3 -obesity Plan: -continue dual antiplatelet therapy -restart outpatient antibiotics , Augmentin -continue beta-deandre, JOSE ROBERTO inhibitor -check TSH, lipid panel -further course of care per oil well service operator helper -transfer to telemetry floor Total time spent with patient discussing and formulating plan of care: 35 minutes. This medical document was created using an electronic medical record system with [employer] dictation system. Although this document has been carefully reviewed, there may still be some phonetic and typographical errors. These areas are purely typographical due to imperfections of the software programs, and do not reflect any compromise in the patient's medical care. Plan discussed with: Patient, Other (RN) My Orders Orders - CHELO PHAN NP Procedure Category Date Status Time Losartan Tablet PHA 03/29/25 Verified (Cozaar Tablet) 10:00 Amoxicillin/Clavulanate PHA 03/28/25 Verified Tablet (Augmenti 22:00 Date of Service: Mar 28, 2025 Billing Provider: CHELO PHAN NP Common Visit Codes: [id number] INP/OBS CARE(HIGH) CHELO PHAN NP Mar 28, 2025 12:18
[2025-03-28] MEDS: SODIUM CHLOR 0.9% PF (SALINE LOCK) 10ML VIAL/SYR IV SCH (13:17)
--- NOTE | 2025-03-28 18:50 | DVHOP ---
DATE OF SURGERY: 03/27/2025 TECHNIQUES PERFORMED: * Code STEMI. * Ultrasound of the right femoral artery. * Management of conscious sedation. * Ultrasound-guided and fluoroscopic-guided insertion of 6-[place] arterial line from the right femoral artery. * Left heart cath. * Left ventriculogram. * [place] selective left and right coronary artery angiography. COMPLICATIONS: None. ASSISTANTS: Assisted by Manuel. Other assistants are Kylee Purcell Adriana. INDICATIONS: The patient had a code STEMI, acute 04/[address] elevation noted in II, III, aVF. ST depression noted in aVL. DESCRIPTION OF PROCEDURE: Risks and benefits discussed in standard manner. The patient was brought to our grinding and polishing laborer urgently. Indications, risks, benefits, alternatives explained. Ultrasound was done. Lidocaine was given under aseptic precaution under the local anesthesia after. We also put a 6-[place] arterial line and also 6-[place] arterial line had been placed in a standard manner under ultrasound guidance and also under fluoroscopy. We have put JL4 catheter and the right coronary angiography was done with the help of the JL4 6-[place] guiding catheter. we also did the right groin angiography with the help of pigtail catheter. Complete left heart catheterization was done. At the end of the procedure, left ventriculogram was done. The right angiography was performed with 20 mL dye. Post-LV gram, left ventricular end-diastolic pressure performed. With the help of pull-through technique, aortic pressure was also performed. IMPRESSION: * Normal left main. * Left anterior artery in the mid-region has underlying 80% narrowing calcified vessel. * Circumflex is a large dominant artery. The circumflex artery after giving the 1st obtuse marginal, at the site of the 2nd obtuse marginal, the circumflex artery is 100% acutely occluded. MITCHELL grade 0 flow. There is also critical stenosis noted at the obtuse marginal artery at the same site at the bifurcation where circumflex artery had been 100% blocked. * The right coronary artery is normal. * The renal artery appeared to be grossly normal. * Ejection fraction in the range of 45%. * Apical inferior wall hypokinesis has been noted. PLAN OF ACTION: I advised the patient to undergo the intervention of circumflex and obtuse marginal artery. Radhika Walsh MD MP/DACIA/ELDA TID: [id number] RECEIPT: [id number] MTDD
--- NOTE | 2025-03-28 19:13 | DVHOP ---
DATE OF SURGERY: 03/27/2025 TECHNIQUES PERFORMED: * Code STEMI. * Ultrasound of the right femoral artery. * Management of conscious sedation. * Ultrasound under fluoroscopic guidance. * Insertion of 6-[place] arterial line from the right femoral artery. * Left coronary angiography. * Mechanical thrombectomy of the left circumflex artery via [place] catheter. * Stenting and angioplasty of left circumflex artery with 2.75 x 80 mm length [place] stent of Lighting by LED. * Intravascular ultrasound of the left circumflex artery. * Balloon angioplasty of the left circumflex stent with 3.0 x 15 mm length noncompliant balloon all the way up to 3.2 mm in size. * The angioplasty of the obtuse marginal artery at the site of the bifurcation from the circumflex artery. * Intraarterial administration of the Integrilin 10 mL bolus. * Right iliofemoral artery angiography. * Arteriotomy, Angio-Seal of the right femoral artery. COMPLICATIONS: None. ASSISTANTS: Assisted by our staff here is Richard Jackson Janice and Kylee. DATE AND TIME OF SURGERY: Friday, at approximately 11:30 p.m. on 03/27/2025. INDICATION: As follows: The patient had 100% acute occlusion of the left circumflex artery, MITCHELL grade 0 flow, code STEMI called. ST elevation in II, III, aVF, V4-V6. DESCRIPTION OF PROCEDURE: Risks and benefits discussed in standard manner. The patient was urgently brought to our crime lab technician. The right groin was shaved, cleaned with soap and Betadine. Ultrasound was done. A 6-[place]ra[place] arterial line was placed. Subsequently, after we have put an XB 3.5 6-[place]ymra[place] guiding catheter and left angiography was done. Subsequently, the patient was started on the Angiomax. We also put a MS Whisper wire, which went very smoothly in the left circumflex artery and subsequently we did mechanical thrombectomy with the help of the [place] catheter. MITCHELL grade 3 flow was then established. Subsequently, now we have put a stent, 2.75 x 18 mm length [place] stent deployed for 31 seconds at a total of 15 atmospheres and subsequently now we did intravascular ultrasound, which showed there is still a gap between the media, so we put a 3.0 x 15 mm length noncompliant balloon. Angioplasty was done, made artery size of 3.20 mm in size, the whole stent. Subsequently, now we have noted underlying critical narrowing also of the left obtuse marginal artery at the site of the bifurcation from the stent, so I again wired the obtuse marginal artery. Balloon angioplasty of the obtuse marginal artery was done with a 2.0 x 12 mm length balloon and taken up to 17 atmospheres. The whole artery made up to 2.4 mm in size. Balloon deflated, balloon had been discontinued. Angiography was done. The result was satisfactory, and there was no complication. The patient did very well. The balloons, wires and catheters all have been discontinued. Overall, the patient has done well. CONCLUSIONS: * Prior to performing intraarterial administration of Integrilin bolus had also been given, arteriotomy, Angio-Seal also had been done and procedure went well. * Prior to performing the procedure #1, the left circumflex artery in the middle 1/3rd region 100% acutely occluded. Circumflex artery is a right dominant artery. Prior to performing MITCHELL grade 0 flow, the lesion is a bifurcation lesion. Post-procedure, MITCHELL grade 3 flow, residual stenosis is 0%, 100% widely opened. * The lesion #2 is the obtuse marginal artery at the site of the bifurcation from the circumflex artery, had underlying critical narrowing at the site of the and also MITCHELL grade 2 flow, post-procedure MITCHELL grade 3 flow and residual stenosis is 0%. Procedure went well. PLAN OF ACTION: Advised aspirin, Brilinta, beta-deandre and cholesterol-reducing medicine, and also advised outpatient followup. So at a later date, we will do angioplasty and stenting also on the left anterior descending artery. Radhika Walsh MD MP/DACIA/ELDA TID: [id number] RECEIPT: [id number] [facility] [place] DIVISIONRohan
[2025-03-28] MEDS: ATORVASTATIN 20 MG TAB PO SCH (21:57)
[2025-03-28] MEDS: AMOXICILLIN/CLAVUL 875 MG TAB PO SCH (21:58)
[2025-03-28] MEDS: DOCUSATE SOD 100 MG CAP PO PRN (22:07)
--- NOTE | 2025-03-29 00:03 | DVHPN2 ---
Progress Note - Dictate Date Seen: Mar 28, 2025 Medical Necessity Reason Pt with a Central, PICC or Fol: No Subjective Patient was seen and evaluated in follow up. Patient underwent LHC, [place] selective left and right coronary artery angiography with PTCA and stent placement to circumflex obtuse marginal. Telemetry reviewed. vital signs Vital Sign Date Time Temp Pulse Resp B/P (MAP) Pulse Ox O2 Delivery O2 Flow Rate FiO2 03/28/25 23:00 76 108/71 03/28/25 21:00 98.2 20 99 98.2 03/28/25 08:00 Nasal Cannula* 2 28 Total Intake and Output 03/27/25 03/27/25 03/28/25 15:00 23:00 07:00 Intake Total 60 ml Output Total 650 ml Balance -590 ml medications Current Medications Medications Dose Ordered Sig/Yadiel Route Start Time Stop Time Status Last Admin Dose Admin Acetaminophen/ Hydrocodone Bitart 1 tab Q4HP PRN PO 03/28/25 00:00 03/28/25 09:53 1 TAB Ondansetron HCl 4 mg Q4HP PRN IV 03/28/25 00:00 Docusate Sodium 100 mg BIDPRN PRN PO 03/28/25 00:00 03/28/25 22:07 100 MG Acetaminophen 650 mg Q6HP PRN PO 03/28/25 00:00 Nitroglycerin 0.4 mg Q5MINP PRN SL 03/28/25 00:00 Morphine Sulfate 2 mg Q30M PRN IV 03/28/25 00:00 Sodium Chloride 10 ml Q8HR IV 03/28/25 06:00 03/28/25 21:57 10 ML Nitroglycerin 0.4 mg Q5M PRN SL 03/28/25 00:45 Cancel Ticagrelor 90 mg BID PO 03/28/25 10:00 03/28/25 21:59 90 MG Aspirin 81 mg DAILY PO 03/28/25 10:00 03/28/25 09:22 81 MG Metoprolol Tartrate 25 mg BID PO 03/28/25 10:00 03/28/25 21:58 25 MG Atorvastatin Calcium 80 mg HS PO 03/28/25 22:00 03/28/25 21:57 80 MG Losartan Potassium 50 mg DAILY PO 03/29/25 10:00 Amoxicillin/ Clavulanate Potassium 875 mg Q12HR PO 03/28/25 22:00 03/28/25 21:58 875 MG objective GENERAL: Alert and oriented x 3. No acute distress. EYES: PERRL, EOMI. Anicteric. HENT: Moist mucous membranes. LUNGS: Clear to auscultation bilaterally. CARDIOVASCULAR: Regular rate and rhythm. ABDOMEN: Soft, nontender and nondistended. EXTREMITIES: No edema. NEUROLOGIC: No focal neurological deficits. SKIN: Warm, dry. laboratory and microbiology Laboratory Tests 03/28/25 06:07 Test 03/28/25 06:07 Range/Units Serum Glucose 105 74-106 mg/dL Problem List STEMI. HTN. Status post PTCA and stent placement to circumflex obtuse marginal. Recent lumbar spinal surgery to L2-L3. Obesity. Assessment/Plan Continued all current supportive medical care. Morphine and [place] for pain management. Antibiotics as ordered. Aspirin, Lipitor, Metoprolol, Brilinta. Losartan. Nitro SL. Additional plan as per the hospital course. Plan discussed with: Patient HARINDER COLES MD Mar 29, 2025 00:03
[2025-03-29 05:00] VITALS: BP 110/73; PULSE 74; RESP 16; TEMP 97.7; O2SAT 96
[2025-03-29 08:00] VITALS: RESP 20; O2SAT 99
[2025-03-29 08:22] VITALS: BP 111/70; PULSE 74
[2025-03-29] MEDS: MUPIROCIN 2% OINT 15gm or 22gm FOR MRSA NARES EACHNOSTRI SCH (10:00)
[2025-03-29] MEDS: LOSARTAN POTASSIUM 25 MG TAB PO SCH (10:00)
--- NOTE | 2025-03-29 10:05 | DVHPN2 ---
Subjective Patient denies any symptoms Reviewed: Care Plan, H&P, Labs, Medications Changes from previous H/P or p: No Changes General: Per HPI Eyes: No Pain, No Vision change, No Conjunctivae inflammation, No Eyelid inflammation, No Other, No Redness ENT: No Ear pain, No Ear discharge, No Nose pain, No Nose discharge, No Nose congestion, No Mouth pain, No Mouth swelling, No Throat pain, No Throat swelling, No Other Cardiovascular: Chest Pain; No Palpitations, No Orthopnea, No Paroxysmal Noc. Dyspnea, No Edema, No Lt Headedness, No Other Respiratory: No Cough, No Dry, No Shortness of breath, No SOB with excertion, No Wheezing, No Hemoptysis, No Pleuritic Pain, No Sputum, No Other Gastrointestinal: No Nausea, No Vomiting, No Abdominal Pain, No Diarrhea, No Constipation, No Melena, No Hematochezia, No Other Genitourinary: No Dysuria, No Frequency, No Incontinence, No Hematuria, No Retention, No Other Musculoskeletal: No other, No neck pain, No shoulder pain, No arm pain, No back pain, No hand pain, No leg pain, No foot pain Skin: No Rash, No Lesions, No Jaundice, No Bruising, No Other Objective Vitals Vital Signs Date Time Temp Pulse Resp B/P (MAP) Pulse Ox O2 Delivery O2 Flow Rate FiO2 03/29/25 08:22 74 111/70 (84) 03/29/25 05:00 97.7 16 96 97.7 03/28/25 20:00 Room Air* 0 21 Intake/Output Intake and Output 03/29/25 07:00 Intake Total 1140 ml Output Total 825 ml Balance 315 ml Intake Oral 900 ml IV Total 240 ml Output Urine Total 825 ml # Voids 6 # Bowel Movements 3 General Appearance: Alert, Oriented X3, Cooperative, No acute distress HEENT: Atraumatic, PERRLA Lungs: Clear to auscultation, Normal air movement Cardiovascular: Normal S1, Normal S2 Abdomen: Normal bowel sounds, Soft, No tenderness Musculoskeletal: Normal sensory function, Normal motor function Skin: Dry, Intact Psych/Mental Status: Mental status NL Medications Current Medications Medications Dose Ordered Sig/Yadiel Route Start Time Stop Time Status Last Admin Dose Admin Acetaminophen/ Hydrocodone Bitart 1 tab Q4HP PRN PO 03/28/25 00:00 03/28/25 09:53 1 TAB Ondansetron HCl 4 mg Q4HP PRN IV 03/28/25 00:00 Docusate Sodium 100 mg BIDPRN PRN PO 03/28/25 00:00 03/28/25 22:07 100 MG Acetaminophen 650 mg Q6HP PRN PO 03/28/25 00:00 Nitroglycerin 0.4 mg Q5MINP PRN SL 03/28/25 00:00 Morphine Sulfate 2 mg Q30M PRN IV 03/28/25 00:00 Sodium Chloride 10 ml Q8HR IV 03/28/25 06:00 03/29/25 05:53 10 ML Nitroglycerin 0.4 mg Q5M PRN SL 03/28/25 00:45 Cancel Ticagrelor 90 mg BID PO 03/28/25 10:00 03/28/25 21:59 90 MG Aspirin 81 mg DAILY PO 03/28/25 10:00 03/28/25 09:22 81 MG Metoprolol Tartrate 25 mg BID PO 03/28/25 10:00 03/28/25 21:58 25 MG Atorvastatin Calcium 80 mg HS PO 03/28/25 22:00 03/28/25 21:57 80 MG Losartan Potassium 50 mg DAILY PO 03/29/25 10:00 Amoxicillin/ Clavulanate Potassium 875 mg Q12HR PO 03/28/25 22:00 03/28/25 21:58 875 MG Mupirocin 1 applic BID EACHNOSTRI 03/29/25 10:00 04/03/25 09:59 UNV Laboratory Results Laboratory Tests 03/28/25 06:07 Microbiology Microbiology Date/Time Source Procedure Growth Status 03/28/25 00:40 Nose MRSA Screen - Final Methicillin Resistant S.aureus Complete Labs and/or images reviewed: Labs reviewed by me, Image(s) reviewed by me Assessment/Plan Assessment/Plan Impression: -STEMI -Status post PTCA and stent placement to circumflex obtuse marginal -primary hypertension -recent lumbar spinal surgery to L2-L3 -obesity -MRSA of the nares Plan: Events: Patient reporting having some chest discomfort, rated a 2/10 with deep inspiration. Also reports having headache. -continue dual antiplatelet therapy -restart outpatient antibiotics , Augmentin -continue beta-deandre, JOSE ROBERTO inhibitor -check TSH, lipid panel -Bactroban nasal -discharge planning once cleared by Cardiology Total time spent with patient discussing and formulating plan of care: 35 minutes. This medical document was created using an electronic medical record system with [employer] dictation system. Although this document has been carefully reviewed, there may still be some phonetic and typographical errors. These areas are purely typographical due to imperfections of the software programs, and do not reflect any compromise in the patient's medical care. Plan discussed with: Patient, Other (RN) My Orders Orders - CHELO PHAN NP Procedure Category Date Status Time Losartan Tablet PHA 03/29/25 In Process (Cozaar Tablet) 10:00 Amoxicillin/Clavulanate PHA 03/28/25 In Process Tablet (Augmenti 22:00 Transfer Orders XFER 03/28/25 Transmitted 12:18 Mupirocin 2% Oint PHA 03/29/25 Logged Mrsa Nares (Bactroban 10:00 Chest Xray 1 View XY 03/29/25 Logged 09:55 Date of Service: Mar 29, 2025 Billing Provider: CHELO PHAN NP Common Visit Codes: [id number] INP/OBS CARE(HIGH) CHELO PHAN NP Mar 29, 2025 10:05
--- NOTE | 2025-03-29 10:50 | DVH ---
EXAM: XY CHEST XRAY 1 VIEW Indication: chest pain Technique: Single frontal view of the chest was obtained Comparison: XY CHEST PORTABLE on DOS: 03/28/25, XY CHEST XRAY 1 VIEW on DOS: 03/27/25, XR CHEST 2 VIEW on DOS: 03/07/25, CR CHEST 2 VIEW on DOS: 12/18/23, CR CHEST 2 VIEW on DOS: 08/18/23 FINDINGS: Lines and Tubes: None Lungs: No focal consolidation. Pleura: No effusion. No pneumothorax. Cardiomediastinal contours: Unremarkable Bones: No acute osseous abnormality. IMPRESSION: No acute cardiopulmonary disease.
[2025-03-29 13:00] VITALS: BP 102/70; PULSE 73; RESP 18; TEMP 97.9; O2SAT 97
[2025-03-29] MEDS ORDERED: MUPI2OIN2 EX (15:38)
--- NOTE | 2025-03-29 15:42 | DVHDS2 ---
Discharge Summary Date of Admission Mar 27, 2025 at 23:47 Date of Discharge: Mar 29, 2025 Admitting Diagnosis STEMI Labs/Diagnostic Data: Laboratory Results Test 03/28/25 06:07 03/27/25 22:24 White Blood Count 8.7 10^3/uL (4.4-10.8) Red Blood Count 4.37 10^6/uL (4.5-5.90) Hemoglobin 14.2 g/dL (13.5-17.5) Hematocrit 41.5 % (41.0-53.0) Mean Corpuscular Volume 95.0 fL (80.0-100.0) Mean Corpuscular Hemoglobin 32.5 pg (28.0-32.0) Mean Corpuscular Hemoglobin Concent 34.2 g/dL (32.0-36.0) Red Cell Distribution Width 13.6 % (11.8-14.3) Platelet Count 337 10^3/uL (140-450) Mean Platelet Volume 7.9 fL (6.9-10.8) Neutrophils (%) (Auto) 60.3 % (37.0-80.0) Lymphocytes (%) (Auto) 21.8 % (10.0-50.0) Monocytes (%) (Auto) 12.1 % (0.0-12.0) Eosinophils (%) (Auto) 5.2 % (0.0-7.0) Basophils (%) (Auto) 0.6 % (0.0-2.0) Neutrophils # (Auto) 5.3 10 ^3/uL (1.6-8.6) Lymphocytes # (Auto) 1.9 10 ^3/uL (0.4-5.4) Monocytes # (Auto) 1.1 10 ^3/uL (0-1.3) Eosinophils # (Auto) 0.5 10 ^3/uL (0-0.8) Basophils # (Auto) 0.1 10 ^3/uL (0-0.2) Nucleated Red Blood Cells 0.1 % Sodium Level 139 mmol/L (136-145) Potassium Level 3.9 mmol/L (3.5-5.1) Chloride Level 105 mmol/L (98-107) Carbon Dioxide Level 21 mmol/L (20-31) Anion Gap 13 (5-15) Blood Urea Nitrogen < 5 mg/dL (9-23) Creatinine 0.79 mg/dL (0.700-1.30) Glomerular Filtration Rate Calc 101 mL/min (>90) BUN/Creatinine Ratio 6.3 (10.0-20.0) Serum Glucose 105 mg/dL (74-106) Calcium Level 7.8 mg/dL (8.7-10.4) Magnesium Level 2.3 mg/dL (1.6-2.6) Total Bilirubin 0.5 mg/dL (0.2-1.0) Aspartate Amino Transferase (AST) 208 U/L (13-40) Alanine Aminotransferase (ALT) 30 U/L (7-40) Alkaline Phosphatase 152 U/L (46-116) Total Protein 5.9 g/dL (5.7-8.2) Albumin 3.3 g/dL (3.2-4.8) Prothrombin Time 10.4 sec (9.3-11.8) Prothrombin Time INR 0.98 (0.9-1.15) Troponin I High Sensitivity 634 ng/L (</=54) Other Laboratory Tests 03/28/25 06:07 Brief Hx & Hospital Course: History of Present Illness The patient is a 59-year-old male with past medical history of hypertension who presented to [facility] ED with complaint of chest pain. Patient reports he has been experiencing substernal chest pain, rating 8/10 numeric scale, nonradiating, associated with subjective fever, getting worse that prompted this visit. Patient states he had lower back surgery 2 weeks ago. Patient was seen and evaluated in the ED, chest x-ray showed NAD, troponin 364, EKG is consistent with STEMI and code STEMI was called. Laboratory data shows WBC 9.1, platelets 396, sodium 138, potassium 4.5, BUN 7, creatinine 0.88, glucose 115, calcium 8.2, blood pressure 145/78, heart rate 65, temperature 98.2 F, O2 saturation 98% on oxygen. Chest x-ray show no acute disease. Patient was emergently taken to the labor economics professor and admitted to step-down unit. Please see medication orders section in the computer. On my assessment, patient denied chest pain at this moment, no headache, no diaphoresis, shortness a breath, no diarrhea, nausea, vomiting, no fever, no chills. Patient was admitted for further evaluation and medical management. Course of hospitalization: Patient was taken emergently to the cardiac catheterization lab where he underwent PTCA and stent placement to his circumflex obtuse marginal artery. Postoperatively the patient's pain has resolved. AST elevations resolved. Patient was continued on Brilinta and aspirin after receiving loading dose. Today, patient's blood pressure was noted to be marginal. Antihypertensives/beta-deandre therapy was held. Patient also had mild pleuritic type of chest pain with deep inspiration. Chest x-ray was repeated which was negative for any acute pathology. Patient states that all his symptoms has been resolved and is wishing to be discharged home. Patient has been cleared by Cardiology for which she will follow up within one week. He is also instructed to follow up with his PCP in 1-2 weeks. Patient will be continued on all previous home medications as well as Brilinta and aspirin. Physical examination General: Alert and Oriented x3. No acute distress. Well-nourished. Eyes: EOMI. Anicteric. HENT: Moist mucous membranes. Lungs: Clear to auscultation bilaterally. No accessory muscle use. Cardiovascular: Regular rate and rhythm. No murmur. No JVD. Abdomen: Soft, non-tender and non-distended. No palpable masses. Extremities: No edema. Non-tender. Skin: No rashes or lesions. Warm. Neurologic: No focal neurological deficits. CN II-XII grossly intact, but not individually tested. Psychiatric: Cooperative. Appropriate mood and affect. Total time spent with patient discussing and formulating plan of care: 35 minutes. This medical document was created using an electronic medical record system with [employer] dictation system. Although this document has been carefully reviewed, there may still be some phonetic and typographical errors. These areas are purely typographical due to imperfections of the software programs, and do not reflect any compromise in the patient's medical care. Consults/Reason for consult Cardiology: NSTEMI Operations or Procedures 03/27/2025: Left heart catheterization with PTCA and stent placement Condition at Discharge: Fair Final Diagnosis/Problems List STEMI involving circumflex artery -Status post PTCA and stent placement to circumflex obtuse marginal -primary hypertension -recent lumbar spinal surgery to L2-L3 -obesity -MRSA of the nares Discharge Disposition: Home Discharge Instruct/Medications Diet: Cardiac 2g Na,low cholest Activity: No Restrictions, As Tolerated Follow Up/Referral: Follow up with Dr. Ibarra at next available appointment to have spinal sutures removed Follow up with Dr. Dago Walsh in 1-2 weeks Medications: Brilinta 90 mg p.o. b.i.d. Aspirin 81 mg p.o. daily Continue all previous home medications Scheduled Amoxicillin & Pot Clavulanate (Augmentin Tablet), 875 MG PO BID, (Reported) Aspirin (Aspir-81), 1 TAB PO DAILY Cholecalciferol (Vitamin D3), 1,000 UNIT PO DAILY, (Reported) Cyclobenzaprine Hcl (Cyclobenzaprine Hcl), 10 MG PO HS, (Reported) Docusate Sodium (Colace), 1 CAP PO BID, (Reported) Duloxetine HCl (Duloxetine HCl), 20 MG PO BID, (Reported) Gabapentin (Once-Daily) (Gabapentin), 300 MG PO TID, (Reported) Losartan Potassium (Losartan Potassium), 50 MG PO DAILY, (Reported) Metoprolol Succinate (Metoprolol Succinate Er), 50 MG PO DAILY, (Reported) Mupirocin (Pseudomonas Fluores (Mupirocin), 2 % EX BID Ticagrelor Base (Brilinta), 90 MG PO BID Scheduled PRN Tramadol Hcl (Tramadol Hcl), 50 MG PO Q6HP PRN for PAIN SCALE 1 THRU 6, (Reported) Discontinued Medications Amoxicillin & Pot Clavulanate (Augmentin Tablet), Unknown Dose PO BID, (Reported) 36 Discharge Statement: "Patient was advised to return to the ER or call 911 if any headaches, dizziness, shortness of breath, chest pain, abdominal pain, bleeding, fevers, or worsening of medical condition. Patient was counseled about treatment plan, medications, possible side effects, patientverbalized understanding. All questions were answered to the best of my ability. This discharge took greater then 30 minutes in planning, reviewing documentation, counseling the patient, and discussing with other team members." ASSESSMENT ASSESSMENT Assessment STEMI involving circumflex artery Date of Service: Mar 29, 2025 Billing Provider: CHELO PHAN NP Common Visit Codes: 83994-YCI/OBS DISCH DAY >30min CHELO PHAN NP Mar 29, 2025 15:42
[2025-03-29 16:46] VITALS: BP 125/87; PULSE 95; RESP 18; TEMP 97.8; O2SAT 99
[2025-03-29 17:49] VITALS: BP 102/55; PULSE 76; RESP 18; TEMP 36.6; O2SAT 100
--- NOTE | 2025-03-30 00:02 | DVHPN2 ---
Progress Note - Dictate Date Seen: Mar 29, 2025 Medical Necessity Reason Pt with a Central, PICC or Fol: No Subjective Patient was seen and evaluated in follow up. Patient has no new complaints at this time. Patient denies any cardiac symptoms. Patient is cardiac stable for discharge. Telemetry reviewed. vital signs Vital Sign Date Time Temp Pulse Resp B/P (MAP) Pulse Ox O2 Delivery O2 Flow Rate FiO2 03/29/25 17:49 36.6 76 18 100 03/29/25 16:46 125/87 (100) 03/29/25 08:00 Room Air* 0 21 Total Intake and Output 03/29/25 03/29/25 03/30/25 15:00 23:00 07:00 Intake Total 455 ml Balance 455 ml medications Current Medications Medications Dose Ordered Sig/Yadiel Route Start Time Stop Time Status Last Admin Dose Admin Nitroglycerin 0.4 mg Q5M PRN SL 03/28/25 00:45 Cancel objective GENERAL: Alert and oriented x 3. No acute distress. EYES: PERRL, EOMI. Anicteric. HENT: Moist mucous membranes. LUNGS: Clear to auscultation bilaterally. CARDIOVASCULAR: Regular rate and rhythm. ABDOMEN: Soft, nontender and nondistended. EXTREMITIES: No edema. NEUROLOGIC: No focal neurological deficits. SKIN: Warm, dry. laboratory and microbiology Laboratory Tests 03/28/25 06:07 Test 03/28/25 06:07 Range/Units Serum Glucose 105 74-106 mg/dL Problem List STEMI. HTN. Status post PTCA and stent placement to circumflex obtuse marginal. Recent lumbar spinal surgery to L2-L3. Obesity. Assessment/Plan Continued all current supportive medical care. Morphine and Branch for pain management. Antibiotics as ordered. Aspirin, Lipitor, Metoprolol, Brilinta. Losartan. Nitro SL. Additional plan as per the hospital course. Plan discussed with: Patient HARINDER COLES MD Mar 30, 2025 00:02
--- NOTE | 2025-03-30 08:52 | DVHSR ---
APPROVED REPORT EXAM: Two-dimensional and M-mode echocardiogram with Doppler and color Doppler. Blood Pressure: 131/74 mmHg INDICATION STEMI RISK FACTORS Height: 66, Weight: 220 DIMENSIONS LVDd4.6 (3.8-5.7cm)LA (2D)3.5 (1.9-4.0cm)Aortic Root3.8 (2.0-3.7cm) LVDs3.3 (2.5-4.0cm)LA (MM) (1.9-4.0cm)Aortic Cusp Exc1.5 (1.5-2.0cm) EF (%) 55.0 (55-70%)Rt. Atrium (1.9-4.0cm)Asc. Aorta cm Mitral Valve MitralMitral Stenosis E wave0.57m/sMV Mean GR.mmHg A wave0.73m/sMV Peak GR.mmHg E/A ratio0.82D MVAcm2 DECEL [id number] 1/2 [id number] IVRTmsDop MVA3.86cm2 Aortic Valve Aortic ValveAortic Stenosis V11.06m/Bia Mean GR.5mmHg V21.48m/Bia Peak GR.9mmHg LVOT Diameter2.1 (1.8-2.4cm)Doppler AVA2.48cm2 Pulmonic Valve V21.39m/s Conclusion LV EF IS 65% AND IS NORMAL AORTIC SCLEROSIS NORMAL MV,TV AND PV NORMAL RV FUNCTION NO EFFUSION
== END 2025-03-29 19:15 | disposition home or self-care (01) | DRG 174 ==
LOC: ER 21:57 → OVERFLOW 23:47 → DOU 03-28 00:35 → TELE-CENTR 03-28 16:04
PROVIDERS: ADMIT Nurse Practitioner Acute Care; ATTEND Nurse Practitioner Acute Care
PROC: 027034Z Dilation of Coronary Artery, One Artery with Drug-eluting Intraluminal Device, Percutaneous Approach (ICD-10-PCS; principal; 2025-03-27)
PROC: 02703ZZ Dilation of Coronary Artery, One Artery, Percutaneous Approach (ICD-10-PCS; 2025-03-27)
PROC: 02C03ZZ Extirpation of Matter from Coronary Artery, One Artery, Percutaneous Approach (ICD-10-PCS; 2025-03-27)
PROC: B240ZZ3 Ultrasonography of Single Coronary Artery, Intravascular (ICD-10-PCS; 2025-03-27)
PROC: B41FYZZ Fluoroscopy of Right Lower Extremity Arteries using Other Contrast (ICD-10-PCS; 2025-03-27)
PROC: 04HK03Z Insertion of Infusion Device into Right Femoral Artery, Open Approach (ICD-10-PCS; 2025-03-27)
PROC: 3E053PZ Introduction of Platelet Inhibitor into Peripheral Artery, Percutaneous Approach (ICD-10-PCS; 2025-03-27)
PROC: B44LZZZ Ultrasonography of Femoral Artery (ICD-10-PCS; 2025-03-27)
PROC: 4A023N7 Measurement of Cardiac Sampling and Pressure, Left Heart, Percutaneous Approach (ICD-10-PCS; 2025-03-27)
PROC: B211YZZ Fluoroscopy of Multiple Coronary Arteries using Other Contrast (ICD-10-PCS; 2025-03-27)
PROC: B215YZZ Fluoroscopy of Left Heart using Other Contrast (ICD-10-PCS; 2025-03-27)
DX: I21.3 ST elevation (STEMI) myocardial infarction of unspecified site (principal); E66.9 Obesity, unspecified; I10 Essential (primary) hypertension; Z98.1 Arthrodesis status; Z79.02 Long term (current) use of antithrombotics/antiplatelets; Z22.322 Carrier or suspected carrier of Methicillin resistant Staphylococcus aureus; Z68.36 Body mass index [BMI] 36.0-36.9, adult
CPT/HCPCS: 36415; 71045; 80048; 80053; 83735; 84484; 85025; 85610; 87081; 92921; 92937; 92941; 92978; 93005; 93306; 93458; 96374; 99152; 99291; 99292; C1874; C1887; G0378; J2250; Q9967